=== PATIENT | female | born 1945 | race Caucasian/White ===

== ENCOUNTER 2017-03-10 22:01 | Emergency (ER) | payer OTHER ==
[~2017-03-10] VITALS: Ht 157.5 cm; Wt 65.9 kg
[2017-03-10] MEDS ORDERED: HYDR25TA PO (22:23)
[2017-03-10] MEDS ORDERED: LISI-618 PO (22:23)
[2017-03-10] MEDS ORDERED: OMEP20 PO (22:23)
[2017-03-10] MEDS ORDERED: AMLO5TAB66 PO (22:23)
[2017-03-11] MEDS ORDERED: DiphenhydrAMINE HCL 50 MG/ML VIAL IVP ONE (00:45)
[2017-03-11] MEDS ORDERED: MethylPREDNISolone SOD SUCC 125 MG/2 ML VIAL IVP ONE (00:45)
[2017-03-11 01:33] VITALS: BP 137/68
== END 2017-03-11 01:49 | disposition home or self-care (01) ==
LOC: EMS 22:02
DX: L50.9 Urticaria, unspecified (principal); R09.89 Other specified symptoms and signs involving the circulatory and respiratory systems; I10 Essential (primary) hypertension
CPT/HCPCS: 96374; 96375; 99284; J1200; J2930

== ENCOUNTER 2017-06-21 15:33 | Emergency (ER) | payer OTHER ==
[~2017-06-21] VITALS: Ht 160 cm; Wt 68.2 kg
[~2017-06-21 15:33] MED LIST: AMLO5TAB66 PO; HYDR25TA PO; LISI-618 PO; OMEP20 PO
[2017-06-21] MEDS ORDERED: METO-325 PO (15:45)
[2017-06-21] MEDS ORDERED: SIMV-260 PO (15:45)
[2017-06-21] MEDS ORDERED: HYDROCODONE/ACETAMINOPHEN 5-325 MG TABLET PO ONE ×2 (17:15→19:00)
[2017-06-21 18:28] VITALS: BP 138/93
== END 2017-06-21 18:55 | disposition home or self-care (01) ==
LOC: EMS 15:36
DX: S33.5XXA Sprain of ligaments of lumbar spine, initial encounter (principal); I10 Essential (primary) hypertension; E78.00 Pure hypercholesterolemia, unspecified; W06.XXXA Fall from bed, initial encounter; Y93.89 Activity, other specified; Y92.89 Other specified places as the place of occurrence of the external cause; Y99.8 Other external cause status
CPT/HCPCS: 72131; 72170; 99284

== ENCOUNTER → 2017-10-21 | Outpatient (CLI) | payer OTHER ==
[~2017-10-21] MED LIST changes: +METO-558 PO; +SIMV-260 PO
== END | disposition home or self-care (01) ==
LOC: RADPV 09:39
PROVIDERS: ATTEND Orthopaedic Surgery
DX: M48.54XD Collapsed vertebra, not elsewhere classified, thoracic region, subsequent encounter for fracture with routine healing (principal); M40.294 Other kyphosis, thoracic region; M51.84 Other intervertebral disc disorders, thoracic region; M25.78 Osteophyte, vertebrae; I70.0 Atherosclerosis of aorta
CPT/HCPCS: 72070